=== PATIENT | male | born 1955 | race Caucasian/White ===

== ENCOUNTER 2016-12-15 10:12 | Outpatient (CLI) | payer OTHER ==
--- NOTE | 2016-12-16 21:46 | DIAGNOSTIC IMAGING REPORT ---
REFERRING PHYSICIAN/PROVIDER: Dr. Terra Núñez CONSULTING DEMURRAGE AGENT: Jonnie Lopez MD PROCEDURE: 2D echo, M-mode and complete color and flow Doppler interrogation TECHNICAL QUALITY: Adequate INDICATION: AORTIC STENOSIS DUE TO BICUSPID AORTIC VALVE INTERPRETATIONS: CHAMBERS: LEFT ATRIUM: Normal left atrial size. LEFT VENTRICLE: Normal left ventricular size with mild-moderate concentric left ventricular hypertrophy. Hyperdynamic systolic function, EF 84%. Grade 1 diastolic dysfunction. No wall motion abnormalities. RIGHT ATRIUM: Normal right atrial size. RIGHT VENTRICLE: Normal right ventricular size and systolic function. VALVES: All valves nonrheumatic unless otherwise indicated. AORTIC VALVE: Individual aortic valve leaflets not seen well. Moderate-severe aortic stenosis with peak velocity 3.9 m/s, mean [id number] mmHg, and calculated aortic valve area of 0.98 cm2. MITRAL VALVE: No mitral stenosis. Trace mitral regurgitation. TRICUSPID VALVE: Trace tricuspid regurgitation. Unable to estimate pulmonary artery systolic pressure due to inadequate tricuspid regurgitation jet. PULMONIC VALVE: No pulmonic regurgitation. MISCELLANEOUS: No pericardial effusion. Normal aorta dimensions. HEMODYNAMICS: CVP is 3 mmHg. IMPRESSION: 1. Concentric left ventricular hypertrophy with hyperdynamic systolic function, EF 84%. No wall motion abnormalities. 2. Grade I diastolic dysfunction. 3. Moderate-severe aortic stenosis with peak velocity of 3.9 m/s, mean gradient 31 mmHg, and calculated aortic valve area of 0.98 cm2. 4. Normal right ventricular size and systolic function. 5. Unable to estimate pulmonary artery systolic pressure due to inadequate tricuspid regurgitation jet.
--- NOTE | 2016-12-16 21:46 | DIAGNOSTIC IMAGING REPORT ---
REFERRING PHYSICIAN/PROVIDER: Dr. Terra Núñez CONSULTING COIL MACHINE SUPERVISOR: Jonnie Lopez MD PROCEDURE: 2D echo, M-mode and complete color and flow Doppler interrogation TECHNICAL QUALITY: Adequate INDICATION: AORTIC STENOSIS DUE TO BICUSPID AORTIC VALVE INTERPRETATIONS: CHAMBERS: LEFT ATRIUM: Normal left atrial size. LEFT VENTRICLE: Normal left ventricular size with mild-moderate concentric left ventricular hypertrophy. Hyperdynamic systolic function, EF 84%. Grade 1 diastolic dysfunction. No wall motion abnormalities. RIGHT ATRIUM: Normal right atrial size. RIGHT VENTRICLE: Normal right ventricular size and systolic function. VALVES: All valves nonrheumatic unless otherwise indicated. AORTIC VALVE: Individual aortic valve leaflets not seen well. Moderate-severe aortic stenosis with peak velocity 3.9 m/s, mean [id number] mmHg, and calculated aortic valve area of 0.98 cm2. MITRAL VALVE: No mitral stenosis. Trace mitral regurgitation. TRICUSPID VALVE: Trace tricuspid regurgitation. Unable to estimate pulmonary artery systolic pressure due to inadequate tricuspid regurgitation jet. PULMONIC VALVE: No pulmonic regurgitation. MISCELLANEOUS: No pericardial effusion. Normal aorta dimensions. HEMODYNAMICS: CVP is 3 mmHg. IMPRESSION: 1. Concentric left ventricular hypertrophy with hyperdynamic systolic function, EF 84%. No wall motion abnormalities. 2. Grade I diastolic dysfunction. 3. Moderate-severe aortic stenosis with peak velocity of 3.9 m/s, mean gradient 31 mmHg, and calculated aortic valve area of 0.98 cm2. 4. Normal right ventricular size and systolic function. 5. Unable to estimate pulmonary artery systolic pressure due to inadequate tricuspid regurgitation jet.
== END 2016-12-15 23:00 ==
LOC: US SRH 10:12
DX: I35.0 Nonrheumatic aortic (valve) stenosis (principal)